=== PATIENT | male | born 1965 | race Caucasian/White ===

== ENCOUNTER 2017-09-05 14:40 | Emergency (ER) | payer OTHER, BC ==
[~2017-09-05] VITALS: Ht 190.5 cm; Wt 109.8 kg
[2017-09-05] MEDS ORDERED: CLOPIDOGREL75 MG PO (15:14)
[2017-09-05] MEDS ORDERED: LEVOTHYROXINE100 MC1 PO (15:16)
[2017-09-05] MEDS ORDERED: TAMSULOSIN HCL0.4 MG PO (15:17)
[2017-09-05] MEDS ORDERED: LOSARTAN POTASS50 M1 PO (15:20)
[2017-09-05] MEDS ORDERED: [UNRECOGNIZED DRUG - OTHER] PO (15:21)
[2017-09-05 16:18] LABS: BASO # 0.1 10*3/uL (0.0-0.1); BASO % 0.9 % (0.0-1.0); EOS # 0.2 10*3/uL (0.0-0.4); EOS % 2.9 % (1.0-4.0); HEMATOCRIT 43.3 % (42.0-52.0); HEMOGLOBIN 14.7 g/dl (14.0-18.0); LYMPH % 28.3 % (27.0-41.0); MEAN CELL VOLUME 89.3 fl (80.0-94.0); MEAN CORPUSCULAR HGB 30.3 pg (27.0-31.0); MEAN CORPUSCULAR HGB CONC 33.9 g/dl (33.0-37.0); MONO # 0.7 10*3/uL (0.1-1.0); MONO % 9.6 % (3.0-9.0); NEUT # 4.1 10*3/uL (2.3-7.9); PLATELET COUNT AUTOMATED 199 10*3/uL (130-400); RED BLOOD COUNT 4.85 10*6/uL (4.50-5.90); RED CELL DISTRI WIDTH 12.1 % (0-14.5)
[2017-09-05 16:27] LABS: ACT PARTIAL THROMBO TIME 26.6 SECONDS (20.8-31.5); INTERNATIONAL NORM RATIO 0.9 (2.0-3.5)
[2017-09-05 16:35] LABS: ALBUMIN 3.6 gm/dl (3.1-4.5); ALKALINE PHOSPHATASE 77 U/L (45-117); BUN 16 mg/dl (7-24); CHLORIDE 109 mmol/L (98-107); CREATININE 0.82 mg/dL (0.70-1.30); POTASSIUM 4.3 mmol/L (3.5-5.1); SGOT/AST 20 IU/L (3-35); SGPT/ALT 37 U/L (12-78); SODIUM 141 mmol/L (136-145); TOTAL PROTEIN 7.3 gm/dL (6.4-8.2)
[2017-09-05 16:40] LABS: TROPONIN I < 0.015 ng/ml (<0.045)
== END 2017-09-05 20:49 | disposition short-term general hospital (02) ==
LOC: ED 14:40
PROVIDERS: Nurse Practitioner Family
DX: R07.9 Chest pain, unspecified (principal); Z79.899 Other long term (current) drug therapy